=== PATIENT | female | born 2000 | race Caucasian/White ===

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

== ENCOUNTER 2024-09-02 13:01 | Emergency (ER) | payer OTHER, SELFPAY ==
[2024-09-02] MEDS ORDERED: Ketorolac Tromethamine 60 MG/2 ML VIAL ONE (13:13)
[2024-09-02] MEDS ORDERED: traMADol HCl 50 MG TAB ONE (13:16)
== END 2024-09-02 14:09 | disposition home or self-care (01) ==
LOC: MADERS 13:01
DX: S82.452A Displaced comminuted fracture of shaft of left fibula, initial encounter for closed fracture (principal); X50.1XXA Overexertion from prolonged static or awkward postures, initial encounter; Y93.61 Activity, american tackle football
CPT/HCPCS: 96372; 99283; J1885